=== PATIENT | female | born 1950 | race Caucasian/White ===

== ENCOUNTER 2017-09-04 12:10 | Emergency (ER) | payer MEDICARE, BC ==
[~2017-09-04] VITALS: Ht 162.6 cm; Wt 61.4 kg
[~2017-09-04 12:10] MED LIST: ASPI-845 PO; CARCD120C PO; ESTR0.5T; LEVO75TA7; OMEP-50; VENL75CA61
[2017-09-04 12:40] LABS: BASOPHILS % (AUTO) 0.2 % (0-1); EOSINOPHILS # (AUTO) 0.1 X10'3 (0-0.9); EOSINOPHILS % (AUTO) 2.2 % (0-6); HEMATOCRIT 40.6 % (35.0-45.0); HEMOGLOBIN 13.9 g/dl (12.0-16.0); LYMPHOCYTES % (AUTO) 31.7 % (21-51); MEAN CORPUSCULAR HEMOGLOBIN 31.3 PG (27.0-31.0); MEAN CORPUSCULAR HGB CONC 34.4 % (33.0-36.5); MONOCYTES # (AUTO) 0.6 X10'3 (0-0.9); MONOCYTES % (AUTO) 8.6 % (2-12); NEUTROPHILS # (AUTO) 3.7 X10'3 (1.8-7.7); NEUTROPHILS % (AUTO) 57.3 % (42-75); PLATELET COUNT 501 X10'3 (140-440); RED BLOOD COUNT 4.46 X10'6 (4.20-5.60); RED CELL DISTRIBUTION WIDTH 13.2 % (11.5-14.5); WHITE BLOOD COUNT 6.5 X10'3 (4.5-11.0)
[2017-09-04 12:51] LABS: INR 0.9 INR; PARTIAL THROMBOPLASTIN TIME 27 SECONDS (22-32); PROTHROMBIN TIME 9.7 SECONDS (9.0-12.0)
[2017-09-04 12:58] LABS: ALANINE AMINOTRANSFERASE 23 U/L (12-78); ALBUMIN 4.1 G/DL (3.4-5.0); ALBUMIN/GLOBULIN RATIO 1.2 (1.1-1.5); ALKALINE PHOSPHATASE 80 IU/L (46-116); ANION GAP 13 (8-16); ASPARTATE AMINO TRANSFERASE 16 U/L (10-37); BILIRUBIN,TOTAL 0.5 MG/DL (0.1-1.0); BLOOD UREA NITROGEN 10 MG/DL (7-18); BUN/CREATININE RATIO 14.7 (6.6-38.0); CALCIUM 9.5 MG/DL (8.5-10.1); CHLORIDE 99 MMOL/L (99-107); CREATININE 0.68 MG/DL (0.40-0.90); GLUCOSE 101 MG/DL (70-104); POTASSIUM 3.9 MMOL/L (3.5-5.1); SODIUM 139 MMOL/L (135-145); TOTAL CARBON DIOXIDE 27.3 MMOL/L (24-32); TOTAL PROTEIN 7.6 G/DL (6.4-8.2); eGFR 87 ML/MIN
[2017-09-04 17:51] VITALS: BP 142/89
== END 2017-09-04 18:06 | disposition home or self-care (01) ==
LOC: ER 12:11
DX: R42 Dizziness and giddiness (principal); R11.0 Nausea; I48.91 Unspecified atrial fibrillation; I10 Essential (primary) hypertension; E03.9 Hypothyroidism, unspecified; Z79.82 Long term (current) use of aspirin; Z79.899 Other long term (current) drug therapy
CPT/HCPCS: 36415; 80053; 84484; 85025; 85610; 85730; 93005; 99285

== ENCOUNTER 2018-01-22 05:29 | Inpatient (IN) | payer MEDICARE, BC ==
[2018-01-15 15:51] LABS: CLARITY,URINE Clear (Clear); COLOR,URINE Yellow (Yellow); GLUCOSE, URINE Negative (Neg); KETONES,URINE Negative (Neg); LEUKOCYTE ESTERASE ,URINE Negative (Neg); NITRITES, URINE Negative (Neg); OCCULT BLOOD,URINE Negative (Neg); PROTEIN,URINE Negative (Neg); UROBILINOGEN,URINE 0.2 E.U/dL (0.2-1.0)
[2018-01-15 15:55] LABS: UA COLLECTION TYPE CLN CATCH MIDSTREAM
[2018-01-15 15:56] LABS: BASOPHILS % (AUTO) 0.2 % (0-1); EOSINOPHILS # (AUTO) 0.1 X10'3 (0-0.9); EOSINOPHILS % (AUTO) 2.1 % (0-6); LYMPHOCYTES % (AUTO) 35.5 % (21-51); MEAN CORPUSCULAR HEMOGLOBIN 30.5 PG (27.0-31.0); MEAN CORPUSCULAR HGB CONC 33.9 % (33.0-36.5); MEAN CORPUSCULAR VOLUME 89.9 FL (78-98); MEAN PLATELET VOLUME 7.4 FL (7.4-10.4); MONOCYTES # (AUTO) 0.5 X10'3 (0-0.9); MONOCYTES % (AUTO) 8.8 % (2-12); NEUTROPHILS % (AUTO) 53.4 % (42-75); PRE OP HEMOGLOBIN 13.2 g/dL (12.0-16.0); PRE OP PLATELET COUNT 395 X10'3 (140-440); RED BLOOD COUNT 4.34 X10'6 (4.20-5.60); RED CELL DISTRIBUTION WIDTH 12.9 % (11.5-14.5)
[2018-01-15 16:24] LABS: ALBUMIN 3.6 G/DL (3.4-5.0); ALBUMIN/GLOBULIN RATIO 1.1 (1.1-1.5); ALKALINE PHOSPHATASE 66 IU/L (46-116); BLOOD UREA NITROGEN 14 MG/DL (7-18); BUN/CREATININE RATIO 18.9 (6.6-38.0); CALCIUM 8.7 MG/DL (8.5-10.1); CHLORIDE 103 MMOL/L (99-107); CREATININE 0.74 MG/DL (0.40-0.90); PRE OP ALT 22 U/L (30-65); PRE OP ANION GAP 6 (8-16); PRE OP AST 13 U/L (10-37); PRE OP BILIRUB, TOTAL 0.8 MG/DL (0.0-1.0); PRE OP GLUCOSE 94 MG/DL (70-104); PRE OP POTASSIUM 3.4 MMOL/L (3.4-5.1); PRE OP SODIUM 138 MMOL/L (135-145); TOTAL CARBON DIOXIDE 29.3 MMOL/L (24-32); TOTAL PROTEIN 6.8 G/DL (6.4-8.2); eGFR 79 ML/MIN
[2018-01-22] VITALS (22 sets, daily range): BP systolic 78–143; BP diastolic 43–91
[~2018-01-22] VITALS: Ht 162.6 cm; Wt 63.0 kg
[~2018-01-22 05:29] MED LIST changes: -ASPI-845 PO; +CALCIUM PO; -CARCD120C PO; +CHOL400T14 PO; +DOCU-264 PO; -ESTR0.5T; +ESTR0.5T5 PO; +FISH12002 PO; +GABA-532 PO; +IRON PO; +LACT1CAP65 PO; -LEVO75TA7; +LEVO75TA7 PO; +MAGN400C PO; +MULT-933 PO; -OMEP-50; +RIVA20TA PO; +SOTA80TA PO; -VENL75CA61; +ringers solution, lacted 1,000 ML IV SCH
[2018-01-22] MEDS ORDERED: acetaminophen 325mg tablet PO ONE (05:30)
[2018-01-22] MEDS ORDERED: tranexamic acid inj. 1,000 MG in normal saline 100ml IV soln 90 ML IV ONE (05:30)
[2018-01-22] MEDS ORDERED: Cefazolin 2GM/50ML dext iso,osmotic IVPB IV ONE (05:30)
[2018-01-22] MEDS ORDERED: gabapentin 300mg capsule PO ONE (05:30)
[2018-01-22] MEDS ORDERED: celeCOXIB 100mg capsule PO ONE ×2 (05:30)
[2018-01-22] MEDS ORDERED: metoclopramide 5 mg/ml inj IV ONE (05:30)
[2018-01-22] MEDS ORDERED: famotidine 20mg tablet PO ONE (05:30)
[2018-01-22] MEDS ORDERED: oxyCODONE SR 10mg (sust. release) tab PO ONE (05:30)
[2018-01-22] MEDS ORDERED: VANCOMYCIN INJ 1000 MG in NORMAL SALINE 250ml IV.SOLN IV ONE (05:30)
[2018-01-22] MEDS ORDERED: LIDOcaine 1% (10mg/ml) 2ml vial ONE (05:49)
[2018-01-22] MEDS ORDERED: epiNEPHrine 1 mg/ml inj ONE (06:41)
[2018-01-22] MEDS ORDERED: ketorolac trometh. 30mg/ml inj. ONE (06:41)
[2018-01-22] MEDS ORDERED: cloNIDine hcl/PF 100mcg/ml inj ONE ×2 (06:42→06:56)
[2018-01-22] MEDS ORDERED: vancomycin 1,000mg inj ONE (06:42)
[2018-01-22] MEDS ORDERED: ROPIVAcaine 0.5% (5mg/ml) 30ml vial ONE ×2 (06:42→08:57)
[2018-01-22] MEDS ORDERED: bisacodyl 10mg suppository rectal RC PRN (06:55)
[2018-01-22] MEDS ORDERED: acetaminophen 325mg tablet PO PRN (06:55)
[2018-01-22] MEDS ORDERED: magnesium hydroxide 30ml (MOM) UD suspension PO PRN (06:55)
[2018-01-22] MEDS ORDERED: HYDROmorphone 1 mg/ml syringe IV PRN (06:55)
[2018-01-22] MEDS ORDERED: diphenhydrAMINE 25mg capsule PO PRN ×2 (06:55)
[2018-01-22] MEDS ORDERED: tetracaine 1% (10mg/ml) pres. free inj. ONE (06:56)
[2018-01-22] MEDS ORDERED: MIDAZolam 1mg/ml 10ml vial ONE (07:00)
[2018-01-22] MEDS ORDERED: fentaNYL/PF 50MCG/1 ML 2ML syringe ONE (07:01)
[2018-01-22] MEDS ORDERED: ePHEDrine 50MG/ML INJ. ONE (07:27)
[2018-01-22] MEDS: levoTHYROXINE 75mcg tablet PO SCH (08:00)
[2018-01-22] MEDS ORDERED: vancomycin/NS 1 GM ADD-VANTAGE 250 ML IV SCH (08:00)
[2018-01-22] MEDS ORDERED: non-formulary drug (Lactobacillus Acidophilus (Probiotic) 1 EACH) PO SCH (08:00)
[2018-01-22] MEDS ORDERED: BORAGE PO SCH (08:00)
[2018-01-22] MEDS: docusate sod 100mg capsule PO SCH (08:00)
[2018-01-22] MEDS ORDERED: FISH OIL PO SCH (08:00)
[2018-01-22] MEDS ORDERED: ceFAZolin 1GM/D5W- ADD-VANTAGE 50 ML IV SCH (08:00)
[2018-01-22] MEDS: sotalol 80mg tablet PO SCH ×2 (08:00→20:00)
[2018-01-22] MEDS ORDERED: [UNRECOGNIZED DRUG - OTHER] PO SCH (08:00)
[2018-01-22] MEDS: ascorbic acid 500mg tablet PO SCH ×2 (08:00→20:48)
[2018-01-22] MEDS: gabapentin 300mg capsule PO SCH ×2 (08:00→20:48)
[2018-01-22] MEDS: multivitamins, therapeutics tablet PO SCH (08:00)
[2018-01-22] MEDS ORDERED: FLAX PO SCH (08:00)
[2018-01-22] MEDS: rivaroxaban 20mg tablet PO SCH (08:00)
[2018-01-22] MEDS ORDERED: ringers solution, lacted 1,000 ML IV SCH (08:33)
[2018-01-22] MEDS ORDERED: meperidine/PF 25mg/ml syringe IV PRN ×3 (08:35)
[2018-01-22] MEDS ORDERED: ondansetron/PF 4mg/2ml inj IV PRN (08:35)
[2018-01-22] MEDS ORDERED: proCHLORperazine 10 MG/2 ml inj IV PRN (08:35)
[2018-01-22] MEDS ORDERED: morphine 4 MG/ML inj SYRINge IV PRN ×2 (08:35)
[2018-01-22] MEDS: potassium cl 20mEq in 1/2 NS 1,000 ML IV SCH (12:54)
[2018-01-22] MEDS ORDERED: normal saline 1000ml 1,000 ML IV ONE (14:30)
[2018-01-22] MEDS: HYDROcodone/acetaminophen 10/325mg tab PO PRN ×3 (14:39→20:49)
[2018-01-22] MEDS ORDERED: tranexamic acid inj. 630 MG in normal saline 100ml IV soln 100 ML IV ONE (15:00)
[2018-01-22] MEDS: magnesium oxide 400mg tablet PO SCH (20:48)
[2018-01-22] MEDS: sennosides 8.6mg tablet PO SCH (20:48)
[2018-01-23] MEDS ORDERED: ceFAZolin 1GM/D5W- ADD-VANTAGE 50 ML IV SCH
[2018-01-23] MEDS: HYDROcodone/acetaminophen 10/325mg tab PO PRN ×5 (00:32→21:17)
[2018-01-23] MEDS: potassium cl 20mEq in 1/2 NS 1,000 ML IV SCH ×4 (00:34→21:16)
[2018-01-23 02:00] VITALS: BP 102/61
[2018-01-23] MEDS: ondansetron/PF 4mg/2ml inj IV PRN ×2 (02:54→08:32)
[2018-01-23] MEDS: HYDROmorphone 1 mg/ml syringe IV PRN ×2 (02:55→12:56)
[2018-01-23 05:09] LABS: BASOPHILS % (AUTO) 0.2 % (0-1); EOSINOPHILS # (AUTO) 0.1 X10'3 (0-0.9); EOSINOPHILS % (AUTO) 0.9 % (0-6); HEMATOCRIT 29.6 % (35.0-45.0); HEMOGLOBIN 9.9 g/dl (12.0-16.0); LYMPHOCYTES % (AUTO) 16.5 % (21-51); MEAN CORPUSCULAR HEMOGLOBIN 30.2 PG (27.0-31.0); MEAN CORPUSCULAR HGB CONC 33.4 % (33.0-36.5); MEAN CORPUSCULAR VOLUME 90.6 FL (78-98); MEAN PLATELET VOLUME 7.5 FL (7.4-10.4); MONOCYTES # (AUTO) 0.7 X10'3 (0-0.9); MONOCYTES % (AUTO) 10.8 % (2-12); NEUTROPHILS # (AUTO) 4.4 X10'3 (1.8-7.7); NEUTROPHILS % (AUTO) 71.6 % (42-75); PLATELET COUNT 267 X10'3 (140-440); RED BLOOD COUNT 3.26 X10'6 (4.20-5.60); RED CELL DISTRIBUTION WIDTH 13.2 % (11.5-14.5); WHITE BLOOD COUNT 6.1 X10'3 (4.5-11.0)
[2018-01-23 05:40] LABS: ANION GAP 5 (8-16); CHLORIDE 105 MMOL/L (99-107); SODIUM 137 MMOL/L (135-145); TOTAL CARBON DIOXIDE 26.6 MMOL/L (24-32)
[2018-01-23 06:00] VITALS: BP 131/76
[2018-01-23] MEDS: ascorbic acid 500mg tablet PO SCH ×2 (08:00→20:00)
[2018-01-23] MEDS: docusate sod 100mg capsule PO SCH (08:00)
[2018-01-23] MEDS: multivitamins, therapeutics tablet PO SCH (08:00)
[2018-01-23] MEDS: levoTHYROXINE 75mcg tablet PO SCH (08:00)
[2018-01-23] MEDS: gabapentin 300mg capsule PO SCH ×2 (08:00→20:07)
[2018-01-23] MEDS ORDERED: scopolamine 1.5mg patch.TD72 TD STA (08:04)
[2018-01-23 10:00] VITALS: BP 111/61
[2018-01-23 14:00] VITALS: BP 114/61
[2018-01-23] MEDS ORDERED: proCHLORperazine 10 MG/2 ml inj IV PRN (14:05)
[2018-01-23] MEDS: rivaroxaban 20mg tablet PO SCH (14:34)
[2018-01-23] MEDS: sotalol 80mg tablet PO SCH ×2 (14:35→20:07)
[2018-01-23 18:00] VITALS: BP 130/61
[2018-01-23] MEDS: celeCOXIB 100mg capsule PO SCH (20:07)
[2018-01-23] MEDS: magnesium oxide 400mg tablet PO SCH (20:15)
[2018-01-23] MEDS: sennosides 8.6mg tablet PO SCH (20:15)
[2018-01-23 22:00] VITALS: BP 156/75
[2018-01-24] MEDS: HYDROcodone/acetaminophen 10/325mg tab PO PRN (05:37)
[2018-01-24] MEDS: ondansetron/PF 4mg/2ml inj IV PRN (05:48)
[2018-01-24 06:00] VITALS: BP 106/66
[2018-01-24 06:06] LABS: BASOPHILS % (AUTO) 0.3 % (0-1); EOSINOPHILS # (AUTO) 0.1 X10'3 (0-0.9); EOSINOPHILS % (AUTO) 1.3 % (0-6); HEMATOCRIT 28.4 % (35.0-45.0); HEMOGLOBIN 9.6 g/dl (12.0-16.0); LYMPHOCYTES # (AUTO) 1.2 X10'3 (1.1-4.8); LYMPHOCYTES % (AUTO) 15.7 % (21-51); MEAN CORPUSCULAR HEMOGLOBIN 30.5 PG (27.0-31.0); MEAN CORPUSCULAR HGB CONC 33.9 % (33.0-36.5); MEAN CORPUSCULAR VOLUME 89.9 FL (78-98); MEAN PLATELET VOLUME 7.8 FL (7.4-10.4); MONOCYTES # (AUTO) 1.1 X10'3 (0-0.9); NEUTROPHILS # (AUTO) 5.1 X10'3 (1.8-7.7); NEUTROPHILS % (AUTO) 67.7 % (42-75); PLATELET COUNT 256 X10'3 (140-440); RED BLOOD COUNT 3.16 X10'6 (4.20-5.60); RED CELL DISTRIBUTION WIDTH 13.1 % (11.5-14.5); WHITE BLOOD COUNT 7.5 X10'3 (4.5-11.0)
[2018-01-24] MEDS: celeCOXIB 100mg capsule PO SCH ×2 (08:58→20:48)
[2018-01-24] MEDS: rivaroxaban 20mg tablet PO SCH (08:58)
[2018-01-24] MEDS: multivitamins, therapeutics tablet PO SCH (08:58)
[2018-01-24] MEDS: gabapentin 300mg capsule PO SCH ×2 (08:58→20:47)
[2018-01-24] MEDS: docusate sod 100mg capsule PO SCH (08:58)
[2018-01-24] MEDS: ascorbic acid 500mg tablet PO SCH ×2 (08:58→20:48)
[2018-01-24] MEDS: levoTHYROXINE 75mcg tablet PO SCH (08:58)
[2018-01-24] MEDS: sotalol 80mg tablet PO SCH ×2 (08:58→20:00)
[2018-01-24] MEDS ORDERED: oxyCODONE/APAP 10/325mg tablet PO PRN (09:40)
[2018-01-24 10:00] VITALS: BP 111/61
[2018-01-24] MEDS: oxyCODONE/APAP 10/325mg tablet PO PRN ×3 (10:01→18:43)
[2018-01-24 18:00] VITALS: BP 100/55
[2018-01-24] MEDS: magnesium oxide 400mg tablet PO SCH (20:48)
[2018-01-24] MEDS: sennosides 8.6mg tablet PO SCH (20:48)
[2018-01-24 22:00] VITALS: BP 111/65
[2018-01-25 05:00] VITALS: BP 109/62
[2018-01-25] MEDS: oxyCODONE/APAP 10/325mg tablet PO PRN ×2 (06:44→11:10)
[2018-01-25] MEDS: rivaroxaban 20mg tablet PO SCH (08:00)
[2018-01-25 08:31] LABS: BASOPHILS % (AUTO) 0.4 % (0-1); EOSINOPHILS # (AUTO) 0.1 X10'3 (0-0.9); EOSINOPHILS % (AUTO) 1.5 % (0-6); HEMATOCRIT 26.4 % (35.0-45.0); HEMOGLOBIN 8.8 g/dl (12.0-16.0); LYMPHOCYTES % (AUTO) 17.3 % (21-51); MEAN CORPUSCULAR HEMOGLOBIN 30.5 PG (27.0-31.0); MEAN CORPUSCULAR HGB CONC 33.3 % (33.0-36.5); MEAN CORPUSCULAR VOLUME 91.4 FL (78-98); MEAN PLATELET VOLUME 7.7 FL (7.4-10.4); MONOCYTES # (AUTO) 0.8 X10'3 (0-0.9); MONOCYTES % (AUTO) 13.5 % (2-12); NEUTROPHILS # (AUTO) 4.1 X10'3 (1.8-7.7); NEUTROPHILS % (AUTO) 67.3 % (42-75); PLATELET COUNT 265 X10'3 (140-440); RED BLOOD COUNT 2.89 X10'6 (4.20-5.60); RED CELL DISTRIBUTION WIDTH 13.1 % (11.5-14.5); WHITE BLOOD COUNT 6.1 X10'3 (4.5-11.0)
[2018-01-25 08:39] VITALS: BP 127/68
[2018-01-25] MEDS: sotalol 80mg tablet PO SCH (08:41)
[2018-01-25] MEDS: celeCOXIB 100mg capsule PO SCH (08:41)
[2018-01-25] MEDS: docusate sod 100mg capsule PO SCH (08:41)
[2018-01-25] MEDS: gabapentin 300mg capsule PO SCH (08:42)
[2018-01-25] MEDS: multivitamins, therapeutics tablet PO SCH (08:42)
[2018-01-25] MEDS: levoTHYROXINE 75mcg tablet PO SCH (08:42)
[2018-01-25] MEDS: ascorbic acid 500mg tablet PO SCH (08:42)
[2018-01-25 10:00] VITALS: BP 124/59
[2018-01-25] MEDS ORDERED: ondansetron 4mg rapidly disintigrating tab PO ONE (11:00)
== END 2018-01-25 11:52 | disposition home or self-care (01) | DRG 470 ==
LOC: PAS IN 05:29 → EDSTATUS 07:30 → ORTHO 4S 11:50
PROVIDERS: ADMIT Orthopaedic Surgery; ATTEND Orthopaedic Surgery
PROC: 3E0T3BZ Introduction of Anesthetic Agent into Peripheral Nerves and Plexi, Percutaneous Approach (ICD-10-PCS; 2018-01-22)
PROC: 0SRD0J9 Replacement of Left Knee Joint with Synthetic Substitute, Cemented, Open Approach (ICD-10-PCS; principal; 2018-01-22 07:07)
DX: M17.12 Unilateral primary osteoarthritis, left knee (principal); D62 Acute posthemorrhagic anemia; E03.9 Hypothyroidism, unspecified; I10 Essential (primary) hypertension; M81.0 Age-related osteoporosis without current pathological fracture; I44.7 Left bundle-branch block, unspecified; I48.2 Chronic atrial fibrillation; F32.9 Major depressive disorder, single episode, unspecified; Z79.899 Other long term (current) drug therapy; Z79.891 Long term (current) use of opiate analgesic; Z79.01 Long term (current) use of anticoagulants; Z79.890 Hormone replacement therapy; Z98.891 History of uterine scar from previous surgery; Z82.49 Family history of ischemic heart disease and other diseases of the circulatory system; Z83.3 Family history of diabetes mellitus
CPT/HCPCS: 36415; 71046; 73560; 80051; 80053; 81003; 82948; 84443; 85025; 86885; 86900; 86901; 87070; 97110; 97116; 97162; A6449; A6455; A7000; C1713; C1758; C1776; J0171; J0690; J0735; J0780; J1170; J1885; J2250; J2405; J2765; J2795; J3010; J3370; J3490; J7030; J7120

== ENCOUNTER 2018-06-25 10:35 | Emergency (ER) | payer MEDICARE, BC ==
[~2018-06-25] VITALS: Ht 160 cm; Wt 53.0 kg
[~2018-06-25 10:35] MED LIST changes: -ringers solution, lacted 1,000 ML IV SCH
[2018-06-25] MEDS ORDERED: aspirin 81mg tab.chew PO ONE (11:05)
[2018-06-25 12:11] LABS: BASOPHILS # (AUTO) 0.1 X10'3 (0-0.2); BASOPHILS % (AUTO) 0.8 % (0-1); EOSINOPHILS # (AUTO) 0.2 X10'3 (0-0.9); EOSINOPHILS % (AUTO) 1.7 % (0-6); HEMATOCRIT 38.1 % (35.0-45.0); HEMOGLOBIN 12.7 g/dl (12.0-16.0); LYMPHOCYTES % (AUTO) 8.9 % (21-51); MEAN CORPUSCULAR HEMOGLOBIN 29.5 PG (27.0-31.0); MEAN CORPUSCULAR HGB CONC 33.3 g/dL (33.0-36.5); MEAN CORPUSCULAR VOLUME 88.5 FL (78-98); MEAN PLATELET VOLUME 7.1 FL (7.4-10.4); MONOCYTES # (AUTO) 0.8 X10'3 (0-0.9); MONOCYTES % (AUTO) 6.8 % (2-12); NEUTROPHILS % (AUTO) 81.8 % (42-75); PLATELET COUNT 401 X10'3 (140-440); RED BLOOD COUNT 4.31 X10'6 (4.20-5.60); RED CELL DISTRIBUTION WIDTH 13.5 % (11.5-14.5); WHITE BLOOD COUNT 11.1 X10'3 (4.5-11.0)
[2018-06-25 12:26] LABS: ALANINE AMINOTRANSFERASE 25 U/L (12-78); ALBUMIN 3.9 G/DL (3.4-5.0); ALKALINE PHOSPHATASE 97 IU/L (46-116); ANION GAP 8 (8-16); ASPARTATE AMINO TRANSFERASE 29 U/L (10-37); BILIRUBIN,TOTAL 1.4 MG/DL (0.1-1.0); BLOOD UREA NITROGEN 14 MG/DL (7-18); BUN/CREATININE RATIO 19.2 (6.6-38.0); CALCIUM 9.6 MG/DL (8.5-10.1); CHLORIDE 101 MMOL/L (99-107); CREATININE 0.73 MG/DL (0.40-0.90); GLUCOSE 98 MG/DL (70-104); POTASSIUM 3.5 MMOL/L (3.5-5.1); SODIUM 137 MMOL/L (135-145); TOTAL CARBON DIOXIDE 28.3 MMOL/L (24-32); TOTAL PROTEIN 7.7 G/DL (6.4-8.2); eGFR 80 ML/MIN
[2018-06-25 12:34] LABS: MAGNESIUM 2.1 MG/DL (1.5-2.4)
[2018-06-25] MEDS ORDERED: traMADol 50MG tablet PO ONE (15:40)
[2018-06-25 16:09] LABS: D-DIMER 1.33 MG/L FEU (0-0.50)
[2018-06-25] MEDS ORDERED: iohexol 350MG/ML 100ml bottle IV ONE (17:31)
[2018-06-25] MEDS ORDERED: HYDR-4383 PO (19:34)
[2018-06-25 19:44] VITALS: BP 102/72
== END 2018-06-25 19:47 | disposition home or self-care (01) ==
LOC: ER 10:36
DX: I31.3 Pericardial effusion (noninflammatory) (principal); R07.81 Pleurodynia; I48.91 Unspecified atrial fibrillation; I10 Essential (primary) hypertension; E03.9 Hypothyroidism, unspecified; Z98.890 Other specified postprocedural states; Z96.652 Presence of left artificial knee joint; Z88.5 Allergy status to narcotic agent; Z79.899 Other long term (current) drug therapy
CPT/HCPCS: 36415; 71045; 71275; 80053; 83735; 83880; 84484; 85025; 85379; 93005; 99284; Q9967

== ENCOUNTER 2024-01-08 09:46 | Emergency (ER) | payer MEDICARE ==
[~2024-01-08] VITALS: Ht 162.6 cm; Wt 65.9 kg
[~2024-01-08 09:46] MED LIST changes: -DOCU-264 PO; -ESTR0.5T5 PO; +HYDR-4383 PO; +[UNRECOGNIZED DRUG - CODE] PO; +[UNRECOGNIZED DRUG - CODE] PO
[2024-01-08 09:52] VITALS: TEMP 98.7
--- NOTE | 2024-01-08 10:37 | NUR ---
REVIEWED AND AGREE WITH ASSESSMENT FINDINGS OF BRITTANY ESPINO
--- NOTE | 2024-01-08 10:45 | NUR ---
dr. sanchez at bedside
[2024-01-08 11:27] VITALS: BP 132/76; PULSE 66; RESP 18; O2SAT 97
== END 2024-01-08 12:02 | disposition home or self-care (01) ==
LOC: ER 09:47
DX: S00.83XA Contusion of other part of head, initial encounter (principal); I48.91 Unspecified atrial fibrillation; I10 Essential (primary) hypertension; E03.9 Hypothyroidism, unspecified; Z88.5 Allergy status to narcotic agent; Z79.899 Other long term (current) drug therapy; W01.0XXA Fall on same level from slipping, tripping and stumbling without subsequent striking against object, initial encounter; Y93.89 Activity, other specified; Y92.89 Other specified places as the place of occurrence of the external cause; Y99.8 Other external cause status
CPT/HCPCS: 70450; 99284